=== PATIENT | female | born 1990 | race Caucasian/White ===

== ENCOUNTER 2020-04-28 15:15 | Outpatient (CLI) | payer SELFPAY ==
--- NOTE | 2020-04-28 15:29 | US_ITS ---
WS: [id number] ULTRASOUND BILATERAL BREAST, complete HISTORY: Bilateral breast lumps. COMPARISON: None available. TECHNIQUE: 2-D and Doppler. Bilateral breast ultrasound. Imaging is performed in all 4 quadrants of each breast. Axillary tails a nd the subareolar regions are also evaluated. There are no soft tissue masses or cysts identified. No skin thickening or increased vascularity US/US breast BI complete [id number] IMPRESSION: BI-RADS: 1-Negative FOLLOW-UP: Age 41 .
== END 2020-04-28 15:16 | disposition home or self-care (01) ==
LOC: RAD 15:25
PROVIDERS: Visit Provider Nurse Practitioner Family
DX: N63.10 Unspecified lump in the right breast, unspecified quadrant (principal); N63.20 Unspecified lump in the left breast, unspecified quadrant
CPT/HCPCS: 76641

== ENCOUNTER 2021-02-07 06:54 | Emergency (ER) | payer SELFPAY ==
[2021-02-07 07:03] VITALS: BP 117/85; PULSE 89; RESP 18; TEMP 37.1; O2SAT 99; BMI 24.0
--- NOTE | 2021-02-07 07:10 | CTR_ITS ---
PROCEDURE INFORMATION: Exam: CT Lumbar Spine Without Contrast Exam date and time: 02/07/2021 7:15 AM Age: 30 years old Clinical indication: Low back pain; Additional info: L leg radicular pain TECHNIQUE: Imaging protocol: Computed tomography images of the lumbar spine without contrast. Radiation optimization: All CT scans at this facility use at least one of these dose optimization techniques: automated exposure control; mA and/or kV adjustment per patient size (includes targeted exams where dose is matched to clinical indication); or iterative reconstruction. COMPARISON: No relevant prior studies available. RADIATION DOSE METRICS: Total DLP (mGy-cm): 1280.54 FINDINGS: Vertebrae: No acute fracture. Normal alignment. Discs/Spinal canal/Neural foramina: There is mild degenerative bulging of the disc from L3 through S1 but no discrete herniation. There is no significant spinal stenosis or neural foraminal narrowing.. Kidneys and ureters: There is a tiny calcification in the right kidney. Soft tissues: Unremarkable. CT/CT lumbar spine wo con* [id number] IMPRESSION: 1. Nonobstructive right nephrolithiasis. 2. Mild degenerative disc bulges. No significant spinal stenosis or neural foraminal narrowing. Radiation Dose CTDIVOL = (mGy): DLP = 1280.54 (mGy-cm)
--- NOTE | 2021-02-07 07:10 | USR_ITS ---
PROCEDURE INFORMATION: Exam: US Pelvis Complete, Transabdominal and US Pelvis, Transvaginal Exam date and time: 02/07/2021 7:28 AM Age: 30 years old Clinical indication: Pelvic pain; Prior surgery; Surgery date: 6+ months; Surgery type: H/o surgery ovarian cyst (age 18); Additional info: L pelvic pain TECHNIQUE: Imaging protocol: Real-time transabdominal and transvaginal pelvic ultrasound (complete) with image documentation. Transvaginal imaging was used for better evaluation of the endometrium, adnexa, and/or cervix. COMPARISON: US BPP w/o NST [id number] 07/18/2015 4:48 PM FINDINGS: Uterus/cervix: The uterus measures 8.6 x 4.6 x 5.7 cm. No uterine masses are seen. The endometrium is normal with a thickness of 7.6 mm. Right adnexa: Multiple follicles with the largest measuring 2.6 cm in diameter.. Normal ovarian blood flow. No adnexal masses Left adnexa: Normal. Multiple small follicles. Normal ovarian blood flow. No adnexal masses Intraperitoneal space: No intraperitoneal fluid. Urinary bladder: No abnormality seen. US/US pelvic with transvaginal IMPRESSION: No significant abnormality is seen in the pelvis.
--- NOTE | 2021-02-07 07:17 | ED_ITS ---
HPI - Abdominal Pain General: Chief Complaint: Abdominal Pain Stated Complaint: lower ab pain Time Seen by Provider: 02/07/21 06:57 History of Present Illness: HPI narrative: 30-year-old female presents emergency room with complaint of primarily left anterior thigh pain she also is reporting some left lower pelvic pain. She denies dysuria urgency or frequency. She denies vaginal discharge denies constipation or diarrhea. MD elicited complaint: abdominal pain Onset (ago): day(s) Pain Consistency: constant Location: Pelvis (left) Severity: moderate Quality: cramping and aching Radiation: other (Left anterior thigh) Exacerbating factors: nothing Relieving factors: nothing Associated Symptoms: Denies anorexia, belching, bloating, change in bowel hab its, change in stool character, chills, coffee ground emesis, constipation, GI cramping, diarrhea, dyspepsia, dysuria, excessive flatus, fever(s), heartburn, hematochezia, hematuria, hematemesis, fecal incontinence, loose stools, melena, nausea, poor appetite, syncope and vomiting Related Data: Date of Last Menstrual Period: 01/20/21 Review of Systems Const: Denies: fever(s) or chills ENMT: Denies: throat pain, ear or mastoid pain, nasal discharge or nasal congestion Card: Denies: syncope Resp: Denies: dyspnea, productive cough or non-productive cough GI: Denies: nausea, vomiting, hematemesis, coffee ground emesis, heartburn, diarrhea, constipation, bloating, GI cramping, belching, excessive flatus, fecal incontinence, change in bowel habits, change in stool character, hematochezia or melena : Denies: dysuria or hematuria Skin/Breast: Denies: rash or pruritus [facility] Female Reproductive History: Date of last menstrual period: 01/20/21 Physical Exam Const: COMMON NORMALS: no acute distress GENERAL APPEARANCE: cooperative and comfortable ORIENTATION/CONSCIOUSNESS: Yes awake, Yes oriented to person, Yes oriented to place and Yes oriented to time HENMT: COMMON NORMALS: normocephalic, atraumatic and hearing grossly normal bilaterally HEAD & SCALP: normocephalic and atraumatic Neck/C-Spine: COMMON NORMALS: no JVD Resp: COMMON NORMALS: normal respiratory effort, No retractions, No use of accessory muscles and clear to auscultation bilaterally AUSCULTATION: clear to auscultation bilaterally Cardio: COMMON NORMALS: no JVD, regular rate, regular rhythm and No murmurs present (Cardio) RATE: regular rate RHYTHM: regular rhythm GI: COMMON NORMALS: Soft to palpation and No hepatosplenomegaly present AUSCULTATION: Yes normoactive bowel sounds PALPATION: Yes Soft to palpation, No Tenderness to palpation present (GI), No Guarding due to palpation present (GI) and Yes No hepatosplenomegaly present Extremity: COMMON NORMALS: normal to inspection, capillary refill normal, no clubbing, cyanosis or edema, no calf tenderness and no pedal edema Neuro: SENSORIUM/ORIENTATION: Yes oriented to person, Yes oriented to place and Yes oriented to time OTHER: Deep tendon reflexes +2/4 at the patellar tendon dorsum plantar flex strength 5 of 5 sensation lower extremities are normal. Skin: COMMON NORMALS: no rashes or lesions noted GENERAL SKIN EXAM: no rashes or lesions noted Course Vital Signs: Vital signs: Vital Signs Temperature 98.7 F 02/07/21 07:03 Pulse Rate 89 02/07/21 07:03 Respiratory Rate 18 02/07/21 07:03 Blood Pressure 117/85 02/07/21 07:03 Pulse Oximetry 99 02/07/21 07:03 MDM - Abdominal Pain MDM Narrative: Medical decision making narrative: Alcohol ultrasound unremarkable. CT of the lumbar spine is question of some disc disease is mild. Suspect she has a sciatica could be echogenic as well. For now we will treat with conservative medical therapy have her follow-up with her primary care doctor if this worsens or not improved she may require advanced imaging. Lab Data: Labs: Lab Results 02/07/21 02/07/21 02/07/21 Range/Units 07:20 07:20 07:20 WBC 9.8 (4.0-10.0) 10^3/ uL RBC 5.05 (4.1-5.3) 10^6/u L Hgb 15.7 H (11.5-15.3) g/dL Hct 47.5 H (37.0-47.0) % MCV 94.1 (81-99) fL MCH 31.1 (28.0-34.0) pg MCHC 33.1 (30.0-36.0) g/dL RDW 12.4 (12.1-15.1) % Plt Count 244 (130-400) 10^3/c mm MPV 11.0 H (7.4-10.4) fL Neut % (Auto) 60.0 % Lymph % (Auto) 28.9 % Archuleta % (Auto) 8.1 % Eos % (Auto) 2.4 % Baso % (Auto) 0.4 % Neut # (Auto) 5.89 (1.8-7.7) 10^3/u L Lymph # (Auto) 2.8 (0.8-4.8) 10^3/u L Archuleta # (Auto) 0.8 (0.2-0.9) 10^3/u L Eos # (Auto) 0.2 (0.0-0.8) 10^3/u L Baso # (Auto) 0.0 (0.0-0.1) 10^3/u L Nucleated RBC % (a uto) 0 % Nucleated RBCs # 0.0 /100WBC Sodium 138 (136-145) mmol/L Potassium 4.1 (3.5-5.1) mmol/L Chloride 103 (98-107) mmol/L Carbon Dioxide 26 (22-29) mmol/L Anion Gap 13.1 (5-19) BUN 7 (6-20) mg/dL Creatinine 0.6 (0.5-0.9) mg/dL GFR Calculation 118.2 (90-130) mL/min Glucose 85 (65-115) mg/dL Calculated Osmolal ity 283 L (285-295) mOsm/k g Calcium 9.3 (8.5-10.5) mg/dL Total Bilirubin 0.4 (0.15-1.2) mg/dL AST 25 (0-32) U/L ALT 28 (0-33) U/L Alkaline Phosphata se 73 (35-105) IU/L Total Protein 7.9 (6.6-8.7) g/dL Albumin 4.9 (3.5-5.2) g/dL Globulin 3.0 (1.3-4.6) g/dL HCG, Qual Negative (Negative) Urine Color (Yellow) Urine Appearance (CLEAR) Urine pH (5-7) Ur Specific Gravit y (1.005-1.030) Urine Protein (Negative) Urine Glucose (UA) (Normal) Urine Ketones (Negative) Urine Blood (Negative) Urine Nitrate (Negative) Urine Bilirubin (Negative) Prot Sulfosalicyli c Acd (Negative) Urine Urobilinogen (Negative) mg/dL Ur Leukocyte Alyse ase (Negative) 02/07/21 Range/Units 07:20 WBC (4.0-10.0) 10^3/ uL RBC (4.1-5.3) 10^6/u L Hgb (11.5-15.3) g/dL Hct (37.0-47.0) % MCV (81-99) fL MCH (28.0-34.0) pg MCHC (30.0-36.0) g/dL RDW (12.1-15.1) % Plt Count (130-400) 10^3/c mm MPV (7.4-10.4) fL Neut % (Auto) % Lymph % (Auto) % Archuleta % (Auto) % Eos % (Auto) % Baso % (Auto) % Neut # (Auto) (1.8-7.7) 10^3/u L Lymph # (Auto) (0.8-4.8) 10^3/u L Archuleta # (Auto) (0.2-0.9) 10^3/u L Eos # (Auto) (0.0-0.8) 10^3/u L Baso # (Auto) (0.0-0.1) 10^3/u L Nucleated RBC % (a uto) % Nucleated RBCs # /100WBC Sodium (136-145) mmol/L Potassium (3.5-5.1) mmol/L Chloride (98-107) mmol/L Carbon Dioxide (22-29) mmol/L Anion Gap (5-19) BUN (6-20) mg/dL Creatinine (0.5-0.9) mg/dL GFR Calculation (90-130) mL/min Glucose (65-115) mg/dL Calculated Osmolal ity (285-295) mOsm/k g Calcium (8.5-10.5) mg/dL Total Bilirubin (0.15-1.2) mg/dL AST (0-32) U/L ALT (0-33) U/L Alkaline Phosphata se (35-105) IU/L Total Protein (6.6-8.7) g/dL Albumin (3.5-5.2) g/dL Globulin (1.3-4.6) g/dL HCG, Qual (Negative) Urine Color Yellow (Yellow) Urine Appearance Clear (CLEAR) Urine pH 8 H (5-7) Ur Specific Gravit y 1.015 (1.005-1.030) Urine Protein Neg (Negative) Urine Glucose (UA) Norm (Normal) Urine Ketones Negative (Negative) Urine Blood Neg (Negative) Urine Nitrate Negative (Negative) Urine Bilirubin Neg (Negative) Prot Sulfosalicyli c Acd Negative (Negative) Urine Urobilinogen Norm (Negative) mg/dL Ur Leukocyte Alyse ase Negative (Negative) Discharge Plan Discharge Patient Disposition: Home Clinical Impression: Radiculopathy Condition: Stable Prescriptions: New Medrol (Reji) 4 mg tablets,dose pack See Rx Instructions .ROUTE .COMPLEX Qty: 21 RF: 0 tizanidine 4 mg capsule 4 mg PO Q6H PRN (Reason: muscle spasticity) Qty: 20 RF: 0 diclofenac sodium 75 mg tablet,delayed release (DR/EC) 75 mg PO Q12H PRN (Reason: pain) Qty: 20 RF: 0 Discharge Orders: Discharge ED (Routine); Ordered 02/07/21 Ordered By: Andi Payne Discharge Diet: Usual diet Discharge Activity: Increase activity as tolerated Patient Instructions: Opioid Safety Activity Restrictions/Additional Instructions: If not improving follow-up with your primary care physician. 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
[2021-02-07 07:34] LABS: Basophils % 0.4 %; Eosinophils # 0.2 10^3/uL (0.0-0.8); Eosinophils % 2.4 %; Hematocrit 47.5 % (37.0-47.0); Hemoglobin 15.7 g/dL (11.5-15.3); Lymphocytes # 2.8 10^3/uL (0.8-4.8); Lymphocytes % 28.9 %; Mean Corpuscular HGB Conc 33.1 g/dL (30.0-36.0); Mean Corpuscular Hemoglobin 31.1 pg (28.0-34.0); Mean Corpuscular Volume 94.1 fL (81-99); Monocytes # 0.8 10^3/uL (0.2-0.9); Monocytes % 8.1 %; Neutrophils # 5.89 10^3/uL (1.8-7.7); Nucleated Red Blood Cells % 0 %; Platelet Count 244 10^3/cmm (130-400); Red Blood Count 5.05 10^6/uL (4.1-5.3); Red Cell Distribution Width 12.4 % (12.1-15.1); White Blood Count 9.8 10^3/uL (4.0-10.0)
[2021-02-07] MEDS: orphenadrine 30 mg/mL Inj 2 mL 60 MG IVP (07:40)
[2021-02-07] MEDS: ketorolac 30 mg/mL INJ IVP (07:40)
[2021-02-07] MEDS: dexamethasone 10 mg/mL INJ IM (07:40)
[2021-02-07 07:41] LABS: Add Urine Microscopic? NO
[2021-02-07 07:49] LABS: Bilirubin Urine Neg (Negative); Blood Urine Neg (Negative); Glucose Urine UA Norm (Normal); Ketones Urine Negative (Negative); Leukocyte Esterase Urine Negative (Negative); Nitrate Urine Negative (Negative); Protein Urine Neg (Negative); Specific Gravity, Urine 1.015 (1.005-1.030); Sulfosalicylic Acid Urine Negative (Negative); Urine Appearance Clear (CLEAR); Urine Color Yellow (Yellow); Urobilinogen Urine Norm (Negative); pH Urine 8 (5-7)
[2021-02-07 08:16] LABS: Alanine Aminotransferase 28 U/L (0-33); Albumin Level 4.9 g/dL (3.5-5.2); Alkaline Phosphatase 73 IU/L (35-105); Anion Gap 13.1 (5-19); Aspartate Amino Transferase 25 U/L (0-32); Blood Urea Nitrogen 7 mg/dL (6-20); Calcium 9.3 mg/dL (8.5-10.5); Carbon Dioxide 26 mmol/L (22-29); Chloride 103 mmol/L (98-107); Glomerular Filtration Rate 118.2 mL/min (90-130); Glucose 85 mg/dL (65-115); Osmolality Calculated 283 mOsm/kg (285-295); Potassium 4.1 mmol/L (3.5-5.1); Sodium 138 mmol/L (136-145); Total Bilirubin 0.4 mg/dL (0.15-1.2); Total Protein 7.9 g/dL (6.6-8.7)
[2021-02-07 08:27] LABS: HCG, Serum Qual Negative (Negative)
== END 2021-02-07 09:13 | disposition home or self-care (01) ==
PROVIDERS: Emergency Provider Family Medicine
DX: M54.10 Radiculopathy, site unspecified (principal)
CPT/HCPCS: 72131; 76830; 76856; 80053; 81003; 84703; 85025; 96374; 96375; 99284; J1100; J1885; J2360

== ENCOUNTER → 2023-03-15 09:20 | Outpatient (BNVA) | payer MEDICAID, SELFPAY | PROVIDERS: Visit Provider Nurse Practitioner Family | DX: L30.1 Dyshidrosis [pompholyx] (principal); L74.513 Primary focal hyperhidrosis, soles; L74.512 Primary focal hyperhidrosis, palms; D22.39 Melanocytic nevi of other parts of face; L85.3 Xerosis cutis | CPT/HCPCS: 99213 ==

== ENCOUNTER → 2023-05-24 10:00 | Outpatient (BNVA) | payer MEDICAID, SELFPAY | PROVIDERS: Visit Provider Obstetrics & Gynecology | DX: N92.6 Irregular menstruation, unspecified (principal) | CPT/HCPCS: 81025; 84702 ==

== ENCOUNTER → 2023-05-26 14:00 | Outpatient (BNVA) | payer MEDICAID, SELFPAY | PROVIDERS: Visit Provider Obstetrics & Gynecology | DX: Z32.00 Encounter for pregnancy test, result unknown (principal) | CPT/HCPCS: 84702 ==

== ENCOUNTER → 2025-08-20 16:50 | Outpatient (BNVA) | payer MEDICAID, SELFPAY | DX: R52 Pain, unspecified (principal); R39.9 Unspecified symptoms and signs involving the genitourinary system | CPT/HCPCS: 81000; 87400 ==

== ENCOUNTER 2025-08-21 12:35 | Emergency (ER) | payer MEDICAID, SELFPAY ==
--- OUTSIDE RECORDS SUMMARY | 2025-08-21 12:41 | XMS_ITS | Clinical Summary ---
Author Organization [facility] [place] Address 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 90 Tablet 1 01/11/2018 Active fluconazole (DIFLUCAN) 100 mg tabletIndications :Vulvovaginal candidiasis Take 1 Tablet (100 mg) by mouth daily. 3 Tablet 06/06/2024 Active valACYclovir (Valtrex) 1 gram tabletIndications :Herpes zoster without complication Take 1 Tablet by mouth 2 times daily. 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 08/03/2018 Overview (03/26/2021): CINI-III per colpo 06/2018 Muscular abdominal pain in left upper quadrant 0 08/02/2018 Hearing loss of right ear 10/09/2017 Family circumstance 09/17/2017 Overview (03/26/2021): Single mom Tobacco use disorder 04/15/2010 Resolved Problems Problem Noted Date Diagnosed Date Resolved Date Supervision of normal 12/02/2017 06/11/2018 LGSIL on Pap smear of cervix 10/06/2017 08/03/2018 Overview (03/25/2021): Needs colpo PP Encounter for supervision of normal in first trimester 09/17/2017 12/02/2017 Encounter for insertion of i ntrauterine contraceptive device 02/06/2016 09/12/2017 Adjustment disorder with mix ed anxiety and depressed mood 08/30/2015 10/28/2015 problem 08/30/20152016 Supervision of other normal , antepartum 07/30/2015 08/30/2015 Gastroesophageal reflux dise ase without esophagitis 07/30/2015 10/28/2015 Screening for cervical cancer 02/23/2013 08/03/2018 Overview (03/25/2021): Normal pap 03/2015 (See scan) LGA (large for gestational age) fetus 09/11/2012 02/17/2013 Supervision of normal first 09/10/2012 02/17/2013 Back sprain or strain 06/13/20112010 Sprains and strains of shoulder and upper arm 06/13/20 11 06/30/2011 Bursitis of shoulder, right 06/13/2011 06/30/2011 Sprain of neck 06/13/2011 06/30/2011 Myalgia and myositis 06/13/2011 011 Contraceptive management 04/21/201009/2016 Encounters Date Type Department Care Team Description 06/12/2025 External Device Data [facility] ABSTRACTION Provider, Abstract 06/11/2025 External Device Data [facility] ABSTRACTION Provider, Abstract 05/28/2025 External Device Data [facility] ABSTRACTION Provider, Abstract 05/21/2025 External Device Data [facility] ABSTRACTION Provider, Abstract from Last 3 Months Immunizations Immunization Administration Dates Next Due (ADACEL/BOOSTRIX)(10 YR UP) TDAP VACCINE, 0.5ML, IM 03/02/2018,08/06/2015,09/11/2012 (GARDASIL 9)(9-45 YRS) HUMAN PAPILLOMAVIRUS VACCINE, TYPES 6, 11, 16, 18, 31, 33, 45, 52, 58, NONAVALENT (9VHPV), 2 OR 3 DOSE, IM 09/28/2018 (M-M-R II/PRIORIX)(12 MO UP) MEASLES, MUMPS AND RUBELLA VIRUS VACCINE, 0.5 ML IM/SUBCUT 04/26/1997,04/21/1993 (TDVAX)(7 YRS UP) TETANUS AN D DIPHTHERIA TOXOIDS, ADSORBED (2 LF OF TETANUS TOXOID AND 2 LF OF DIPHTHERIA TOXOID), 0.5ML (PF), IM 03/30/2004 Dt Dtp Dtap Vaccine 04/26/1997, 4,09/23/1992,06/24,02/19/1992 HIB, Unspecified Formulation 04/21/1993, 09/23/1992,06/24/1992,02/18 Hepatitis B Vaccine 02/07/1998,07/30/1997,1996 INFLUENZA VACCINE QUADRIVALE NT 3 YR UP PF IM 09/12/2017,10/28/2015 IPV/OPV 04/26/1997, 2,06/24/1992,02/18 Influenza Vaccine Split 3+ Yrs PF IM 08/29/2012 Family History Medical History Relation Name Comments Healthy Brother 1 Healthy Brother 2 Healthy Brother 3 Healthy Daughter Healthy Father Healthy Maternal Grandfather Healthy Maternal Grandmother Healthy Mother Healthy Paternal Grandfather Healthy Paternal Grandmother Healthy Son Relation Name Status Comments Brother 1 Alive Brother 2 Alive Brother 3 Alive Daughter Alive Father Alive Maternal Grandfather Alive Maternal Grandmother Alive Mother Alive Paternal Grandfather Alive Paternal Grandmother Alive Son Alive Social History Tobacco Use Types Packs/Day Years Used Date Smoking Tobacco: Every Day Cigarettes Passive Smoke Exposure: Current Smokeless Tobacco: Never Tobacco Cessation:Ready to Q uit: No; Counseling Given: Yes Alcohol Use Standard Drinks/Week Comments No 0 (1 standard drink = 0.6 oz pur e alcohol) Comments No Sex and Gender Information Value Date Recorded Sex Assigned at Not on file 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 Gender Identity Not on file Sexual Orientation Not on file Last Filed Vital Signs Vital Sign Reading Time Taken Comments Blood Pressure 122/76 06/06/2024 2:41 PM CDT Pulse 100 06/06/2024 2:41 PM CDT Temperature 36.8 C (98.2 F) 06/06/2024 2:41 PM CDT Respiratory Rate 18 06/06/2024 2:41 PM CDT Oxygen Saturation 98% 06/06/2024 2:41 PM CDT Inhaled Oxygen Concentration - - Weight 65 kg (143 lb 6.4 oz) 06/06/2024 2:41 PM CDT Height 165.1 cm (5' 5 ) 06/06/2024 2:41 PM CDT Body Mass Index 23.86 06/06/2024 2:41 PM CDT Plan of Treatment Health Maintenance Due Date Last Done Comments Preventative Visit-Managed Medicaid 2010 HPV VACCINES (2 - 3-dose series) 10/26/2018 09/28/20 18 PAP SMEAR 2021 10/03/2017, 04/2017, 04/15/2015 CERVICAL CANCER SCREENING 10/03/2022 HPV/Cotest (21-29) 10/03/2022 10/03/2017 HPV/Cotest (30-65) 10/03/2022 10/03/2017 INFLUENZA VACCINE (#1) 2025 7, 10/28/2015, 08/29/2012 DTAP/TDAP/TD VACCINES (9 - T d or Tdap) 03/02/2028 03/02/2018, 08/06/2015, 09/11/2012, Additional history exists HEPATITIS B VACCINES Completed 02/07/1998, 07/30/1997, 06/07/1997 Medical Devices Implanted Type Area Duplication Specialist Device Identifier Shelf Expiration Date Model / Serial / Lot Log [id number] - Synthes Small Frag Lcp Locking - 1 - Plate Lcp 1/3 Tubular 7hole 241.371 Implanted:Qty: 1 on 01/05/2009 Plate Right: Ankle SYNTHES STRATEC 241.371 / NA / NA Description:Load #[id number] Log [id number] - Synthes Small Frag Lcp Locking - 1 - Screw Ronnie Self Tap 3.5x12mm 204.812 Implanted:Qty: 1 on 01/05/2009 Screw Right: Ankle SYNTHES STRATEC 204.812 / NA / NA Description:Load#[id number] Log 5746 - Synthes Small Frag Lcp Locking - 1 - Screw Ronnie Self Tap 3.5x16mm 204.816 Implanted:Qty: 2 on 01/05/2009 Screw Right: Ankle SYNTHES STRATEC 204.816 / NA / NA Description:Load #[id number] Log [id number] - Synthes Small Frag Lcp Locking - 1 - Screw Ronnie Self Tap 3.5x18mm 204.818 Implanted:Qty: 1 on 01/05/2009 Screw Right: Ankle SYNTHES STRATEC 204.818 / N / NA Description:Load #[id number] Log 5746 - Synthes Small Frag Lcp Locking - 1 - Screw Ronnie Self Tap 3.5x20mm 204.820 Implanted:Qty: 1 on 01/05/2009 Screw Right: Ankle SYNTHES STRATEC 204.820 / NA / NA Description:Load #[id number] Log 5746 - Synthes Small Frag Lcp Locking - 1 - Screw Ronnie Self Tap 3.5x24mm 204.824 Implanted:Qty: 1 on 01/05/2009 Screw Right: Ankle SYNTHES STRATEC 204.824 / NA / NA Description:Load #[id number] Explanted Type Area Duplication Specialist Device Identifier Shelf Expiration Date Model / Serial / Lot Log [id number] - Synthes Small Frag Lcp Locking - 1 - Screw Ronnie Self Tap 3.5x20mm 204.820 Explanted:Qty: 1 on 01/05/2009 Screw Right: Ankle SYNTHES STRATEC 204.820 / NA / NA Procedures Procedure Name Priority Date/Time Associated Diagnosis Comments CERV/VAG CYTO SCREEN PAP RLFX HPV Routine 10/03/2017 4:27 PM WINDOW TREATMENT INSTALLER from Last 3 Months or Most Recently Relevant to Health Maintenance Results * (ABNORMAL) CERV/VAG CYTO SCREEN PAP RLFX HPV (10/03/2017 4:27 PM WINDOW TREATMENT INSTALLER) CLINICAL INFORMATION SEE COMMENT 10/06/2017 12:16 PM WINDOW TREATMENT INSTALLER [facility] Comment: Information not provided SCREENING LAST MENSTRUAL PERIOD SEE COMMENT 10/06/2017 12:16 PM WINDOW TREATMENT INSTALLER [facility] Comment:INFORMATION NOT PROV IDED PREV PAP: [id number] 10/06/2017 12:16 PM WINDOW TREATMENT INSTALLER [facility] PREV BX: SEE COMMENT 10/06/2017 12:16 PM WINDOW TREATMENT INSTALLER [facility] Comment:INFORMATION NOT PROV IDED SOURCE Endocervix 10/06/2017 12:16 PM WINDOW TREATMENT INSTALLER [facility] ADEQUACY: SEE COMMENT 10/06/2017 12:16 PM WINDOW TREATMENT INSTALLER [facility] Comment: Satisfactory for evaluation. Endocervical/transformation zone component present. Age and/or menstrual status not provided GENERAL CATEGORIZATION: SEE COMMENT(A) 10/06/2017 12:16 PM WINDOW TREATMENT INSTALLER [facility] Comment:EPITHELIAL CELL ABNO RMALITY PAP INTERP SEE COMMENT(A) 10/06/2017 12:16 PM WINDOW TREATMENT INSTALLER [facility] Comment:Low Grade Squamous I ntraepithelial Lesion (LSIL) COMMENT SEE COMMENT 10/06/2017 12:16 PM WINDOW TREATMENT INSTALLER [facility] Comment: This Pap test has been evaluated with computer assisted technology. Suggest clinical correlation and follow-up as clinically appropriate HAM FACER: SEE COMMENT 2016 12:16 PM WINDOW TREATMENT INSTALLER [facility] Comment: MLO, CT(ASCP) CT screening location: [place] [address] [address] [place] [address] PATHOLOGIST SEE COMMENT 10/06/2017 12:16 PM WINDOW TREATMENT INSTALLER [facility] Comment: Nikko Rose M.D., Board Certified in Anatomic Pathology and Cytopathology. (electronic signature) Genital SWAB OF ENDOCERVIX / Unknown Collection / Unknown 10/03/2017 4:27 PM WINDOW TREATMENT INSTALLER 10/05/2017 7:26 AM WINDOW TREATMENT INSTALLER Narrative [facility] - 10/06/2017 12:16 PM WINDOW TREATMENT INSTALLER Performing Organization Information: Site ID: Name: [facility] Address: Counts include [address] beds at the [facility] [address] [place] [address] Director: Radha Jennings MD us Vianca Sanders MD PATHOLOGY/CYTOLOGY ORDERAB LES Final Result [facility] from Last 3 Months or Most Recently Relevant to Health Maintenance Insurance [facility] MEDICAID Care Teams Water Treatment Plant Engineer Relationship Specialty Start Date End Date Shabana Funes MD [address] [address] PCP - General Family Practice 11/24/18
--- OUTSIDE RECORDS SUMMARY | 2025-08-21 12:41 | XMS_ITS ---
Author Organization [facility] [place] Address [address] 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 Past Treatment and Therapy Plans No past plan information found. Lifetime Dose Tracking * Chemical Lifetime Dose Automatic Entry Manual Entr y Effective Dose 7 mSv 7 mSv 0 mSv Total DLP 468.2 DLP 468.2 DLP 0 DLP CTDIvol Max 11.1 mGy 11.1 mGy 0 mGy CTDIvol Min 11.1 mGy 11.1 mGy 0 mGy Resolved Problems Problem Noted Date Diagnosed Date [...]
[2025-08-21 12:43] VITALS: BP 137/94; PULSE 88; TEMP 36.9; O2SAT 100
--- NOTE | 2025-08-21 12:57 | ECG_ITS ---
[facility] Date: 2025-08[facility]21 Pat Name: Pamella Rowe Department: Room: Gender: Female Nutrition Consultant: : 1990 Requested By: Clara Enriquez Order Number: [id number] Parish MD: Arron Wing M.D. Measurements Intervals [place] Rate: 87 P: 59 NV: 170 QRS: 60 QRSD: 86 T: 56 QT: 362 QTc: 437 Interpretive Statements SINUS RHYTHM INTERPRETATION BASED ON A DEFAULT AGE OF 40 YEARS No previous ECG available for comparison Electronically Signed On 08-21-2025 21:24:36 CDT by Arron Wing M.D. [id number]
--- NOTE | 2025-08-21 12:57 | XR_ITS ---
WS: [id number] Exam: XR chest 1V portable [id number] Date/Time of Exam: 08/21/2025 12:57 PM Reason For Exam: Chest pain No priors. The lungs are fully inflated and clear. Normal cardiomediastinal silhouette. Bony structures are intact. XR/XR chest 1V portable [id number] IMPRESSION: 1. Negative chest.
--- NOTE | 2025-08-21 12:57 | W.ED.GENADLT ---
HPI - General Adult General: Chief complaint: General Medical Stated complaint: CP SOB R half face went Numb Time Seen by Provider: 08/21/25 12:57 History of Present Illness: 34-year-old female who presents emergency room after she stood up at work and developed numbness in her entire right face. She then developed shortness of breath and chest tightness. She says that might be anxiety from being scared about the facial numbness. He says the numbness has improved and it now feels like she been hit in the face. She also says she woke up a few nights ago and felt like there was an elephant on her chest and her hands were numb bilaterally. Related Data Previous Rx's ?Medication ?Instructions ?Recorded cephalexin 500 mg capsule 500 mg PO TID 5 days #15 caps 08/21/25 Allergies Allergy/AdvReac Type Severity Reaction Status Date / Time Latex, Natural Rubber Allergy Mild ALGY-Rash Verified 08/21/25 12:54 Review of Systems Narrative: Constitutional symptoms: Negative except as documented in HPI. Skin symptoms: Negative except as documented in HPI. Eye symptoms: Negative except as documented in HPI. ENMT symptoms: Negative except as documented in HPI. Respiratory symptoms: Negative except as documented in HPI. Cardiovascular symptoms: Negative except as documented in HPI. Gastrointestinal symptoms: Negative except as documented in HPI. Genitourinary symptoms: Negative except as documented in HPI. Musculoskeletal symptoms: Negative except as documented in HPI. Neurologic symptoms: Negative except as documented in HPI. Psychiatric symptoms: Negative except as documented in HPI. Endocrine symptoms: Negative except as documented in HPI. [facility] ED PFSH: Medical History (Updated 08/21/25 @ 14:37 by Clara May MD) No pertinent past medical history Surgical History No pertinent past surgical history Family History Mother Hypertension Thyroid disease Denies family history of Colon cancer Ovarian cancer Diabetes Heart disease Breast cancer Uterine cancer Stroke Social History Smoking and tobacco/nicotine status: current every day tobacco/nicotine user (1 ppd) Physical Exam Narrative: EXAM NARRATIVE: General: Alert, no acute distress. Skin: Warm, dry. Head: Normocephalic, atraumatic. Neck: Supple, trachea midline. Eye: Extraocular movements are intact. Ears, nose, mouth and throat: mucosa moist. Cardiovascular: Regular, Normal peripheral perfusion. Respiratory: Lungs are clear to auscultation, respirations are non-labored, breath sounds are equal, Symmetrical chest wall expansion. Gastrointestinal: Soft, Nontender, Non distended Musculoskeletal: Normal ROM, no deformity. Neurological: Alert and oriented, No focal neurological deficit observed. Psychiatric: Cooperative, appropriate mood & affect. Course Vital Signs: Vital signs: Vital Signs Temperature 98.4 F 08/21/25 12:43 Pulse Rate 81 08/21/25 14:45 Respiratory Rate 17 08/21/25 14:45 Blood Pressure 114/82 08/21/25 14:45 Pulse Oximetry 99 08/21/25 14:45 Oxygen Delivery Me thod Room Air 08/21/25 13:40 MDM - General Adult Medical Decision Making Medical decision making: Differential diagnosis including but not limited to and based on the above HPI, review of systems and physical exam: Patient had what seems to be a peripheral paresthesia. Unclear etiology. However given that it was involving the upper and lower half of her face makes it fairly unlikely that is central but a CT is ordered to evaluate for any intracranial abnormality such as tumor or bleeds. Chest discomfort could be from anxiety but we will rule out other pathology such as acute coronary syndrome and pneumonia. Orders placed to evaluate differential diagnosis based on the above differential, HPI and physical exam EKG: Time 1247. Rate 87. Normal sinus rhythm, No ST-T changes, no ectopy, normal MA & QRS intervals, This was reviewed and interpreted by myself the ER physician at 1253 Chest x-ray: No acute process. No infiltrate. No pneumothorax. This was reviewed and interpreted by myself the emergency room physician. I also reviewed the radiology report. CT head: No acute intracranial process. no intracranial hemorrhage, no evidence of infarct. no evidence of acute fracture.This was reviewed and interpreted by myself the ER physician. Lab Review: Laboratory results were reviewed and interpreted by myself the emergency room physician. No leukocytosis. No anemia. No renal failure. Urinalysis shows 6-10 whites and 1+ bacteria so we will treat for possible UTI although likely just nonclean-catch. I reviewed the patient's medical record. Reexamination: Patient remained stable. No increased work of breathing. No altered mental status. No focal motor deficits. Patient appears less anxious. We discussed at length the findings and that she does need to have follow-up with her primary and just because I did not find something emergent or life-threatening does not mean that something is not going on and she does need to have follow-up Assessment and plan: Paresthesia Noncardiac chest pain - Discharged home - Discussed findings and plan with patient. Answered any questions. - All laboratory values were reviewed and interpreted personally by myself, the ER physician - All imaging was reviewed and interpreted personally by myself, the ER physician. - Evaluation and treatment of this problem were appropriate in the emergency setting Lab Data 08/21/25 13:07 08/21/25 13:07 Radiology Impressions Chest X-Ray 08/21/25 12:57 IMPRESSION: 1. Negative chest. Head CT 08/21/25 13:07 IMPRESSION: 1. No evidence of intracranial hemorrhage or mass effect. 2. No acute intracranial findings. Laboratory Results WBC 7.99 10^3/uL (3.29-11.43) 08/21/25 13:07 RBC 4.47 10^6/uL (3.85-5.65) 08/21/25 13:07 Hgb 14.40 g/dL (11.27-16.99) 08/21/25 13:07 Hct 42.8 % (36-47) 08/21/25 13:07 MCV 95.7 fl (85-98) 08/21/25 13:07 MCH 32.2 pg (27-33) 08/21/25 13:07 MCHC 33.6 g/dL (30-55) 08/21/25 13:07 RDW 13.0 % (12.1-15.1) 08/21/25 13:07 Plt Count 218 10^3/cmm (157-399) 08/21/25 13:07 MPV 10.1 fL (7.4-10.4) 08/21/25 13:07 Neut % (Auto) 55.8 % 08/21/25 13:07 Lymph % (Auto) 33.3 % 08/21/25 13:07 [place] % (Auto) 8.0 % 08/21/25 13:07 Eos % (Auto) 2.4 % 08/21/25 13:07 Baso % (Auto) 0.4 % 08/21/25 13:07 Neut # (Auto) 4.46 10^3/uL (1.8-7.7) 08/21/25 13:07 Lymph # (Auto) 2.7 10^3/uL (0.8-4.8) 08/21/25 13:07 [place] # (Auto) 0.6 10^3/uL (0.2-0.9) 08/21/25 13:07 Eos # (Auto) 0.2 10^3/uL (0.0-0.8) 08/21/25 13:07 Baso # (Auto) 0.0 10^3/uL (0.0-0.1) 08/21/25 13:07 Nucleated RBC % (auto) 0 % 08/21/25 13:07 Nucleated RBCs # 0.0 /100WBC 08/21/25 13:07 Sodium 138 mmol/L (136-145) 08/21/25 13:07 Potassium 4.1 mmol/L (3.5-5.1) 08/21/25 13:07 Chloride 101 mmol/L (98-107) 08/21/25 13:07 Carbon Dioxide 26 mmol/L (22-29) 08/21/25 13:07 Anion Gap 15.1 (5-19) 08/21/25 13:07 BUN 14 mg/dL (6-20) 08/21/25 13:07 Creatinine 0.6 mg/dL (0.5-0.9) 08/21/25 13:07 GFR Calculation 115.1 mL/min (90-130) 08/21/25 13:07 Glucose 90 mg/dL (65-115) 08/21/25 13:07 Calculated Osmolality 286 mOsm/kg (285-295) 08/21/25 13:07 Calcium 10.0 mg/dL (8.5-10.5) 08/21/25 13:07 Total Bilirubin 0.3 mg/dL (0.15-1.2) 08/21/25 13:07 AST 30 U/L (0-32) 08/21/25 13:07 ALT 40 U/L (0-33) H 08/21/25 13:07 Alkaline Phosphatase 66 U/L (35-105) 08/21/25 13:07 Troponin T Baseline < 6 ng/L (0-10) 08/21/25 13:07 Total Protein 7.0 g/dL (6.6-8.7) 08/21/25 13:07 Albumin 4.5 g/dL (3.5-5.2) 08/21/25 13:07 Globulin 2.5 g/dL (1.3-4.6) 08/21/25 13:07 HCG, Qual Negative (Negative) 08/21/25 13:07 Urine Color Yellow (Yellow) 08/21/25 13:13 Urine Appearance Clear (CLEAR) 08/21/25 13:13 Urine pH 6.5 (5-7) 08/21/25 13:13 Ur Specific [place] 1.014 (1.005-1.030) 08/21/25 13:13 Urine Protein Negative (Negative) 08/21/25 13:13 Urine Glucose (UA) Negative (Normal) 08/21/25 13:13 Urine Ketones Negative (Negative) 08/21/25 13:13 Urine Blood Negative (Negative) 08/21/25 13:13 Urine Nitrate Negative (Negative) 08/21/25 13:13 Urine Bilirubin Negative (Negative) 08/21/25 13:13 Urine Urobilinogen 1.0 mg/dL (Negative) 08/21/25 13:13 Ur Leukocyte Esterase Negative (Negative) 08/21/25 13:13 Urine RBC 0-2 /hpf (0-2) 08/21/25 13:13 Urine WBC 6-10 /hpf (0-5) 08/21/25 13:13 Ur Squamous Epith Cells 0-5 /hpf (0-5) 08/21/25 13:13 Amorphous Sediment Not Reportable 08/21/25 13:13 Urine Bacteria 1+ /hpf (NONE) H 08/21/25 13:13 Hyaline Casts 1.21 /lpf 08/21/25 13:13 All radiology interpretation(s) finalized by discharge Discharge Plan Discharge Patient Disposition: Home Clinical Impression: Facial paresthesia, Non-cardiac chest pain Condition: Stable Prescriptions: New cephalexin 500 mg capsule 500 mg PO TID 5 Days Qty: 15 0RF Discharge Orders: Discharge ED (Routine); Ordered 08/21/25 Ordered By: Clara May Discharge Diet: Usual diet Discharge Activity: Increase activity as tolerated Patient Instructions: Paresthesia (ED), Opioid Safety, Pain Management, Patient Portal & [facility] Instructions Activity Restrictions/Additional Instructions: Thank you for choosing [facility] for your healthcare needs today. You have been screened and evaluated and felt safe for discharge. Health conditions do change or evolve sometimes and as such it is important that you follow up with your Primary Doctor to be re checked, 3-5 days is a general good time frame for follow up. You are always welcome to return to the ED for re assessment if your symptoms are worsening or you have new concerns Print Language: Lao Coding Level of Care Code ED Sorter Pricer for Mari Hernandez
--- NOTE | 2025-08-21 13:07 | CT_ITS ---
WS: [id number] CT HEAD TECHNIQUE: Noncontrast CT of the head obtained from the skullbase to the vertex. CLINICAL INFORMATION: facial numbness COMPARISON: None DLP: 1079.[address] scans at [facility] use at least one of these dose optimization techniques: automated exposure control; mA and/or kV adjustment per patient size (includes targeted exams where dose is matched to clinical indication); or iterative reconstruction. FINDINGS: No evidence of intracranial hemorrhage or mass effect. Ventricular system and basal cisterns are patent. No extra-axial fluid collections. No evidence of mass or mass effect. Normal tran-white differentiation. Paranasal sinuses and mastoid air cells are well aerated. .Normal visualized soft tissues. CT/CT head wo con* [id number] IMPRESSION: 1. No evidence of intracranial hemorrhage or mass effect. 2. No acute intracranial findings.
[2025-08-21 13:15] LABS: Hematocrit 42.8 % (36-47); Hemoglobin 14.40 g/dL (11.27-16.99); Mean Corpuscular HGB Conc 33.6 g/dL (30-55); Mean Corpuscular Hemoglobin 32.2 pg (27-33); Mean Corpuscular Volume 95.7 fl (85-98); Nucleated Red Blood Cells % 0 %; Platelet Count 218 10^3/cmm (157-399); Red Blood Count 4.47 10^6/uL (3.85-5.65); White Blood Count 7.99 10^3/uL (3.29-11.43)
[2025-08-21 13:19] VITALS: BP 106/82; PULSE 85; RESP 18; O2SAT 96
[2025-08-21 13:30] LABS: Glucose Urine UA Negative (Normal); Nitrate Urine Negative (Negative); Specific Gravity, Urine 1.014 (1.005-1.030)
[2025-08-21 13:40] VITALS: BP 135/80; PULSE 88; RESP 16; O2SAT 98
[2025-08-21 13:40] LABS: Troponin(5th) Baseline < 6 ng/L (0-10)
--- NOTE | 2025-08-21 13:45 | PC.PHAR ---
Pt states she takes no medications at this time. Previous rx for Buspirone 5mg bid prn last fill 07/11/25 30ds and Nicotine 21mg patch daily 07/11/25 28ds
[2025-08-21 13:48] LABS: HCG, Serum Qual Negative (Negative)
[2025-08-21 13:51] LABS: Alanine Aminotransferase 40 U/L (0-33); Albumin Level 4.5 g/dL (3.5-5.2); Alkaline Phosphatase 66 U/L (35-105); Anion Gap 15.1 (5-19); Aspartate Amino Transferase 30 U/L (0-32); Blood Urea Nitrogen 14 mg/dL (6-20); Calcium 10.0 mg/dL (8.5-10.5); Carbon Dioxide 26 mmol/L (22-29); Chloride 101 mmol/L (98-107); Creatinine Clr Calc Pharmacy 121.0469; Globulin 2.5 g/dL (1.3-4.6); Glucose 90 mg/dL (65-115); Osmolality Calculated 286 mOsm/kg (285-295); Potassium 4.1 mmol/L (3.5-5.1); Sodium 138 mmol/L (136-145); Total Protein 7.0 g/dL (6.6-8.7)
[2025-08-21 14:21] VITALS: BP 101/73; PULSE 79; RESP 16; O2SAT 98
[2025-08-21 14:45] VITALS: BP 114/82; PULSE 81; RESP 17; O2SAT 99
== END 2025-08-21 14:46 | disposition home or self-care (01) ==
PROVIDERS: Emergency Provider Emergency Medicine
DX: R20.2 Paresthesia of skin (principal); R07.89 Other chest pain; F17.210 Nicotine dependence, cigarettes, uncomplicated
CPT/HCPCS: 70450; 71045; 80053; 81001; 84484; 84703; 85025; 93005; 99285